=== PATIENT | female | born 1970 | race Asian ===

== ENCOUNTER 2017-10-15 15:18 | Inpatient (IN) | payer BC, OTHER ==
[~2017-10-15] VITALS: Ht 154.9 cm; Wt 70.0 kg
[2017-10-15 15:38] LABS: GLUCOSE,POINT OF CARE 125 MG/DL (70-110)
[2017-10-15] MEDS ORDERED: METF500T6 PO (15:44)
[2017-10-15] MEDS ORDERED: CITA-106 PO (15:44)
[2017-10-15] MEDS ORDERED: LORA0.5T2 PO (15:44)
[2017-10-15] MEDS ORDERED: TOPI100T37 PO (15:44)
[2017-10-15] MEDS ORDERED: GLIP5 PO (15:44)
[2017-10-15] MEDS ORDERED: HYDR-309 PO (15:44)
[2017-10-15] MEDS ORDERED: SIMV-261 PO (15:44)
[2017-10-15] MEDS ORDERED: ACETAMINOPHEN 500 MG TABLET PO ONE (15:45)
[2017-10-15] MEDS ORDERED: KETOROLAC TROMETHAMINE 30 MG/ML VIAL IVP ONE (16:15)
[2017-10-15] MEDS ORDERED: SODIUM CHLORIDE 0.9% 1,000 ML IV ONE ×2 (16:15→21:45)
[2017-10-15] MEDS ORDERED: IOVERSOL 320 MG/ML 100 ML VIAL ONE (16:22)
[2017-10-15 17:07] LABS: BASOPHILS % (AUTO) 0.6 % (0.0-2.0); EOSINOPHILS % (AUTO) 0.8 % (1.0-6.0); HEMATOCRIT 31.3 % (36-46); LYMPHOCYTES # (AUTO) 0.5 K/uL (1.0-4.8); LYMPHOCYTES % (AUTO) 16.7 % (22.0-44.0); MEAN CORPUSCULAR HEMOGLOBIN 20.8 pg (26.0-34.0); MEAN CORPUSCULAR HGB CONC 31.9 G/dL (31.0-37.0); MEAN CORPUSCULAR VOLUME 65 fL (80-100); MONOCYTES # (AUTO) 0.1 K/uL (0.1-1.0); MONOCYTES % (AUTO) 4.3 % (2.0-9.0); NEUTROPHILS # (AUTO) 2.3 K/uL (1.8-7.7); NEUTROPHILS % (AUTO) 77.6 % (40.0-70.0); PLATELET COUNT (AUTO) 322 K/uL (150-450); RED BLOOD CELL COUNT(AUTO) 4.81 MIL/uL (4.00-5.20); RED CELL DISTRIBUTION WIDTH 22.3 % (11.5-14.5)
[2017-10-15 17:30] LABS: ANION GAP 11 mmol/L (8-16); CALCIUM, TOTAL 9.3 mg/dL (8.8-10.5); CARBON DIOXIDE 22 mmol/L (22-29); CHLORIDE 105 mmol/L (98-107); CREATININE 0.87 mg/dL (0.60-1.30); GLOMERULAR FILTR. RATE CALC > 60 mL/min (>60); GLUCOSE,RANDOM 91 mg/dL (70-110); POTASSIUM 3.3 mmol/L (3.5-5.1); SODIUM SERUM 138 mmol/L (136-145); UREA NITROGEN, BLOOD 10 mg/dL (7-18)
[2017-10-15] MEDS ORDERED: LORazepam 2 MG/ML VIAL IVP ONE (17:30)
[2017-10-15 17:31] LABS: ALANINE AMINOTRANSFERASE 295 U/L (12-78); ALBUMIN 3.8 g/dL (3.4-5.0); ALKALINE PHOSPHATASE 380 U/L (46-116); ASPARTATE AMINOTRANSFERASE 227 U/L (15-37); BILIRUBIN,TOTAL 1.1 mg/dL (0.1-1.0); LIPASE 216 U/L (73-393); TOTAL PROTEIN, SERUM 8.2 g/dL (6.4-8.2)
[2017-10-15 18:04] LABS: LACTIC ACID 2.3 mmol/L (0.4-2.0)
[2017-10-15 18:37] LABS: APPEARANCE,URINE CLOUDY (CLEAR); GLUCOSE, URINE (UA) NEGATIVE (NEGATIVE); KETONES,URINE NEGATIVE (NEGATIVE); LEUKOCYTE ESTERASE ,URINE TRACE (NEGATIVE); NITRATE,URINE NEGATIVE (NEGATIVE); OCCULT BLOOD,URINE LARGE (NEGATIVE); PH,URINE 6.5 (5.0-8.0); PROTEIN,URINE POS 1+ (NEGATIVE)
[2017-10-15 19:04] LABS: BILIRUBIN,URINE PRELIM. POSITIVE (NEGATIVE)
[2017-10-15 19:06] LABS: SQUAMOUS EPITHELIAL CELL,UR Moderate /LPF (None Seen)
[2017-10-15 19:07] LABS: BACTERIA,URINE Few /HPF (None Seen)
[2017-10-15] MEDS ORDERED: LISI-622 PO (20:14)
[2017-10-15] MEDS ORDERED: DiphenhydrAMINE HCL 50 MG/ML VIAL IVP ONE (20:15)
[2017-10-15] MEDS ORDERED: ONDANSETRON HCL 4 MG/2 ML VIAL IVP PRN (20:15)
[2017-10-15] MEDS ORDERED: 0.9% SODIUM CHLORIDE 10 ML SYRINGE IVP PRN (20:15)
[2017-10-15] MEDS ORDERED: ACETAMINOPHEN 325 MG TABLET PO PRN (20:15)
[2017-10-15] MEDS ORDERED: METOCLOPRAMIDE HCL 5 MG/ML 2 ML VIAL IVP ONE (20:15)
[2017-10-15] MEDS ORDERED: MAGNESIUM HYDROXIDE SUSPENSION 30 ML UDCUP PO PRN (21:45)
[2017-10-15] MEDS ORDERED: BISACODYL 10 MG RECTAL RECTAL SUPPOSITORY PR PRN (21:45)
[2017-10-15] MEDS ORDERED: MORPHINE SULFATE 4 MG/ML SYRINGE IVP PRN (21:45)
[2017-10-15 22:26] VITALS: BP 102/61
[2017-10-15] MEDS ORDERED: CefTRIAXone SODIUM 1 GM in DEXTROSE 5%-WATER 10 ML IV ONE (22:30)
[2017-10-15] MEDS: HYDROCODONE/ACETAMINOPHEN 5-325 MG TABLET PO PRN (23:21)
[2017-10-15] MEDS: ZOLPIDEM TARTRATE 5 MG TABLET PO PRN (23:21)
[2017-10-16] MEDS: HEPARIN SODIUM,PORCINE 5,000 UNITS/ML VIAL SQ SCH ×4 (00:56→23:28)
[2017-10-16 02:55] VITALS: BP 114/70
[2017-10-16] MEDS: GlipiZIDE 5 MG TABLET PO SCH (06:00)
[2017-10-16 06:45] LABS: ALANINE AMINOTRANSFERASE 224 U/L (12-78); ALKALINE PHOSPHATASE 324 U/L (46-116); ANION GAP 9 mmol/L (8-16); ASPARTATE AMINOTRANSFERASE 154 U/L (15-37); BILIRUBIN,TOTAL 0.6 mg/dL (0.1-1.0); CALCIUM, TOTAL 8.1 mg/dL (8.8-10.5); CARBON DIOXIDE 22 mmol/L (22-29); CHLORIDE 110 mmol/L (98-107); CREATININE 0.81 mg/dL (0.60-1.30); GLOMERULAR FILTR. RATE CALC > 60 mL/min (>60); GLUCOSE,RANDOM 158 mg/dL (70-110); POTASSIUM 3.3 mmol/L (3.5-5.1); SODIUM SERUM 141 mmol/L (136-145); TOTAL PROTEIN, SERUM 6.7 g/dL (6.4-8.2); UREA NITROGEN, BLOOD 9 mg/dL (7-18)
[2017-10-16 07:26] LABS: BASOPHILS % (AUTO) 0.7 % (0.0-2.0); EOSINOPHILS % (AUTO) 2.2 % (1.0-6.0); HEMATOCRIT 25.7 % (36-46); HEMOGLOBIN 8.1 g/dL (12.0-16.0); LYMPHOCYTES # (AUTO) 0.6 K/uL (1.0-4.8); LYMPHOCYTES % (AUTO) 28.3 % (22.0-44.0); MEAN CORPUSCULAR HEMOGLOBIN 20.3 pg (26.0-34.0); MEAN CORPUSCULAR HGB CONC 31.6 G/dL (31.0-37.0); MEAN CORPUSCULAR VOLUME 64 fL (80-100); MONOCYTES # (AUTO) 0.2 K/uL (0.1-1.0); MONOCYTES % (AUTO) 8.1 % (2.0-9.0); NEUTROPHILS # (AUTO) 1.3 K/uL (1.8-7.7); NEUTROPHILS % (AUTO) 60.7 % (40.0-70.0); PLATELET COUNT (AUTO) 314 K/uL (150-450); RED BLOOD CELL COUNT(AUTO) 4.02 MIL/uL (4.00-5.20); RED CELL DISTRIBUTION WIDTH 22.4 % (11.5-14.5)
[2017-10-16 08:00] VITALS: BP 133/70
[2017-10-16] MEDS: MetFORMIN HCL 500 MG TABLET PO SCH ×2 (08:00→18:00)
[2017-10-16] MEDS: SIMVASTATIN 40 MG TABLET PO SCH (08:50)
[2017-10-16] MEDS: PANTOPRAZOLE SODIUM 40 MG DR TABLET PO SCH (08:50)
[2017-10-16] MEDS: DOCUSATE SODIUM 100 MG CAPSULE PO SCH ×2 (08:50→21:00)
[2017-10-16] MEDS: HYDROCODONE/ACETAMINOPHEN 5-325 MG TABLET PO PRN ×2 (08:51→21:05)
[2017-10-16] MEDS: DOXYCYCLINE HYCLATE 100 MG CAPSULE PO SCH ×2 (09:28→21:05)
[2017-10-16] MEDS ORDERED: POTASSIUM CHLORIDE 20 MEQ ER TABLET PO ONE (11:00)
[2017-10-16] MEDS ORDERED: LORazepam 0.5 MG TABLET PO PRN (11:00)
[2017-10-16 11:09] VITALS: BP 128/73
[2017-10-16] MEDS: LOSARTAN POTASSIUM 25 MG TABLET PO SCH (11:34)
[2017-10-16] MEDS: CITALOPRAM HYDROBROMIDE 20 MG TABLET PO SCH (11:34)
[2017-10-16 19:40] VITALS: BP 136/75
[2017-10-16] MEDS ORDERED: LISINOPRIL 5 MG TABLET PO SCH (21:00)
[2017-10-16] MEDS: TOPIRAMATE 100 MG TABLET PO SCH (21:05)
[2017-10-16] MEDS: HYDROmorphone HCL 2 MG TABLET PO PRN (23:20)
[2017-10-16 23:22] VITALS: BP 131/70
[2017-10-17 03:49] VITALS: BP 112/55
[2017-10-17] MEDS: HYDROmorphone HCL 2 MG TABLET PO PRN ×2 (05:25→20:37)
[2017-10-17] MEDS: GlipiZIDE 5 MG TABLET PO SCH (08:17)
[2017-10-17] MEDS: HEPARIN SODIUM,PORCINE 5,000 UNITS/ML VIAL SQ SCH ×3 (08:18→23:56)
[2017-10-17] MEDS: SIMVASTATIN 40 MG TABLET PO SCH (08:18)
[2017-10-17] MEDS: CITALOPRAM HYDROBROMIDE 20 MG TABLET PO SCH (08:18)
[2017-10-17] MEDS: LOSARTAN POTASSIUM 25 MG TABLET PO SCH (08:18)
[2017-10-17] MEDS: MetFORMIN HCL 500 MG TABLET PO SCH ×2 (08:18→17:43)
[2017-10-17] MEDS: PANTOPRAZOLE SODIUM 40 MG DR TABLET PO SCH (08:19)
[2017-10-17 08:52] VITALS: BP 128/70
[2017-10-17] MEDS: DOCUSATE SODIUM 100 MG CAPSULE PO SCH ×2 (09:00→20:40)
[2017-10-17 09:32] LABS: BASOPHILS % (AUTO) 0.9 % (0.0-2.0); EOSINOPHILS % (AUTO) 4.2 % (1.0-6.0); HEMATOCRIT 23.3 % (36-46); HEMOGLOBIN 7.7 g/dL (12.0-16.0); LYMPHOCYTES % (AUTO) 42.1 % (22.0-44.0); MEAN CORPUSCULAR HEMOGLOBIN 21.1 pg (26.0-34.0); MEAN CORPUSCULAR VOLUME 64 fL (80-100); MONOCYTES # (AUTO) 0.3 K/uL (0.1-1.0); NEUTROPHILS % (AUTO) 41.8 % (40.0-70.0); PLATELET COUNT (AUTO) 333 K/uL (150-450); RED BLOOD CELL COUNT(AUTO) 3.65 MIL/uL (4.00-5.20); RED CELL DISTRIBUTION WIDTH 22.3 % (11.5-14.5)
[2017-10-17 09:49] LABS: ALANINE AMINOTRANSFERASE 219 U/L (12-78); ALBUMIN 3.1 g/dL (3.4-5.0); ALKALINE PHOSPHATASE 415 U/L (46-116); ANION GAP 9 mmol/L (8-16); ASPARTATE AMINOTRANSFERASE 146 U/L (15-37); BILIRUBIN,TOTAL 0.7 mg/dL (0.1-1.0); C-REACTIVE PROTEIN QUANT 2.39 mg/dL (0.00-0.30); CALCIUM, TOTAL 8.2 mg/dL (8.8-10.5); CARBON DIOXIDE 24 mmol/L (22-29); CHLORIDE 108 mmol/L (98-107); CREATINE KINASE, TOTAL 37 U/L (26-192); CREATININE 0.71 mg/dL (0.60-1.30); GLOMERULAR FILTR. RATE CALC > 60 mL/min (>60); GLUCOSE,RANDOM 193 mg/dL (70-110); POTASSIUM 3.7 mmol/L (3.5-5.1); SODIUM SERUM 141 mmol/L (136-145); TOTAL PROTEIN, SERUM 6.7 g/dL (6.4-8.2); UREA NITROGEN, BLOOD 6 mg/dL (7-18)
[2017-10-17 10:02] LABS: LACTATE DEHYDROGENASE 276 U/L (81-234)
[2017-10-17 10:39] LABS: ERYTHROCYTE SEDIMENTATION RATE 15 MM/HR (0-20)
[2017-10-17] MEDS ORDERED: SUMAtriptan SUCCINATE 6 MG/0.5 ML VIAL SQ PRN (11:15)
[2017-10-17 11:30] VITALS: BP 126/72
[2017-10-17 11:33] LABS: HIV 1-2 SCREEN 4TH GEN W/RFLX Non Reactive (Non Reactive)
[2017-10-17 12:41] LABS: MONOTEST NEGATIVE (NEGATIVE)
[2017-10-17 15:28] VITALS: BP 119/72
[2017-10-17 15:46] LABS: % IRON SATURATION 4.5 % (22-44)
[2017-10-17] MEDS ORDERED: SODIUM CHLORIDE 0.9% 250 ML IV ONE (16:16)
[2017-10-17] MEDS: SOD FERRIC GLUC COMPLX/SUCROSE 125 MG in SODIUM CHLORIDE 0.9% 100 ML IV SCH (16:23)
[2017-10-17] MEDS: ACETAMINOPHEN 325 MG TABLET PO PRN (17:40)
[2017-10-17] MEDS: TOPIRAMATE 100 MG TABLET PO SCH (20:36)
[2017-10-17 20:38] VITALS: BP 126/75
[2017-10-17] MEDS: ZOLPIDEM TARTRATE 5 MG TABLET PO PRN (23:56)
[2017-10-18] VITALS: BP 122/67
[2017-10-18 03:12] VITALS: BP 115/74
[2017-10-18] MEDS: HYDROmorphone HCL 2 MG TABLET PO PRN ×4 (03:12→21:13)
[2017-10-18] MEDS: GlipiZIDE 5 MG TABLET PO SCH (05:52)
[2017-10-18] MEDS: ACETAMINOPHEN 325 MG TABLET PO PRN (06:25)
[2017-10-18 06:43] LABS: BASOPHILS % (AUTO) 0.8 % (0.0-2.0); EOSINOPHILS % (AUTO) 3.3 % (1.0-6.0); HEMATOCRIT 25.1 % (36-46); HEMOGLOBIN 8.2 g/dL (12.0-16.0); LYMPHOCYTES # (AUTO) 1.3 K/uL (1.0-4.8); LYMPHOCYTES % (AUTO) 37.9 % (22.0-44.0); MEAN CORPUSCULAR HGB CONC 32.5 G/dL (31.0-37.0); MEAN CORPUSCULAR VOLUME 65 fL (80-100); MONOCYTES # (AUTO) 0.3 K/uL (0.1-1.0); MONOCYTES % (AUTO) 10.1 % (2.0-9.0); NEUTROPHILS # (AUTO) 1.6 K/uL (1.8-7.7); NEUTROPHILS % (AUTO) 47.9 % (40.0-70.0); PLATELET COUNT (AUTO) 374 K/uL (150-450); RED BLOOD CELL COUNT(AUTO) 3.89 MIL/uL (4.00-5.20); RED CELL DISTRIBUTION WIDTH 22.7 % (11.5-14.5)
[2017-10-18 07:12] VITALS: BP 105/58
[2017-10-18 07:15] LABS: ALANINE AMINOTRANSFERASE 244 U/L (12-78); ALBUMIN 3.2 g/dL (3.4-5.0); ALKALINE PHOSPHATASE 500 U/L (46-116); ANION GAP 10 mmol/L (8-16); ASPARTATE AMINOTRANSFERASE 172 U/L (15-37); BILIRUBIN,TOTAL 0.6 mg/dL (0.1-1.0); CALCIUM, TOTAL 8.4 mg/dL (8.8-10.5); CARBON DIOXIDE 25 mmol/L (22-29); CHLORIDE 105 mmol/L (98-107); CREATININE 0.72 mg/dL (0.60-1.30); GLOMERULAR FILTR. RATE CALC > 60 mL/min (>60); GLUCOSE,RANDOM 206 mg/dL (70-110); POTASSIUM 3.4 mmol/L (3.5-5.1); SODIUM SERUM 140 mmol/L (136-145); TOTAL PROTEIN, SERUM 7.2 g/dL (6.4-8.2); UREA NITROGEN, BLOOD 6 mg/dL (7-18)
[2017-10-18] MEDS: MetFORMIN HCL 500 MG TABLET PO SCH ×2 (08:05→17:01)
[2017-10-18] MEDS: PANTOPRAZOLE SODIUM 40 MG DR TABLET PO SCH (08:06)
[2017-10-18] MEDS: DOCUSATE SODIUM 100 MG CAPSULE PO SCH ×2 (08:06→20:29)
[2017-10-18] MEDS: LOSARTAN POTASSIUM 25 MG TABLET PO SCH (08:06)
[2017-10-18] MEDS: SIMVASTATIN 40 MG TABLET PO SCH (08:06)
[2017-10-18] MEDS: HEPARIN SODIUM,PORCINE 5,000 UNITS/ML VIAL SQ SCH ×2 (08:06→17:01)
[2017-10-18] MEDS: CITALOPRAM HYDROBROMIDE 20 MG TABLET PO SCH (08:06)
[2017-10-18 11:12] VITALS: BP 140/68
[2017-10-18] MEDS: SOD FERRIC GLUC COMPLX/SUCROSE 125 MG in SODIUM CHLORIDE 0.9% 100 ML IV SCH (14:06)
[2017-10-18 15:39] VITALS: BP 128/77
[2017-10-18 20:02] VITALS: BP 125/71
[2017-10-18] MEDS: TOPIRAMATE 100 MG TABLET PO SCH (20:29)
[2017-10-18] MEDS: ZOLPIDEM TARTRATE 5 MG TABLET PO PRN (22:32)
[2017-10-18 22:53] LABS: GLUCOMETER DEV NAME(LOC) 5N 1P; GLUCOSE,POINT OF CARE 108 MG/DL (70-110)
[2017-10-19 00:28] VITALS: BP 126/68
[2017-10-19] MEDS: HEPARIN SODIUM,PORCINE 5,000 UNITS/ML VIAL SQ SCH ×4 (00:28→23:13)
[2017-10-19 05:48] VITALS: BP 122/67
[2017-10-19] MEDS: GlipiZIDE 5 MG TABLET PO SCH (06:07)
[2017-10-19] MEDS: HYDROmorphone HCL 2 MG TABLET PO PRN ×4 (06:32→23:13)
[2017-10-19 07:15] VITALS: BP 112/68
[2017-10-19] MEDS: CITALOPRAM HYDROBROMIDE 20 MG TABLET PO SCH (08:21)
[2017-10-19] MEDS: SIMVASTATIN 40 MG TABLET PO SCH (08:21)
[2017-10-19] MEDS: MetFORMIN HCL 500 MG TABLET PO SCH ×2 (08:21→17:55)
[2017-10-19] MEDS: PANTOPRAZOLE SODIUM 40 MG DR TABLET PO SCH (08:21)
[2017-10-19] MEDS: LOSARTAN POTASSIUM 25 MG TABLET PO SCH (08:21)
[2017-10-19] MEDS: DOCUSATE SODIUM 100 MG CAPSULE PO SCH ×2 (08:23→20:07)
[2017-10-19 10:50] VITALS: BP 101/63
[2017-10-19] MEDS ORDERED: POTASSIUM CHLORIDE 20 MEQ ER TABLET PO PRN (11:00)
[2017-10-19] MEDS ORDERED: POTASSIUM CHL 10 MEQ/WATER 50 ML IV PRN (11:00)
[2017-10-19 14:56] VITALS: BP 108/58
[2017-10-19] MEDS: SOD FERRIC GLUC COMPLX/SUCROSE 125 MG in SODIUM CHLORIDE 0.9% 100 ML IV SCH (15:37)
[2017-10-19 19:33] VITALS: BP 131/73
[2017-10-19] MEDS: TOPIRAMATE 100 MG TABLET PO SCH (20:07)
[2017-10-19] MEDS: ZOLPIDEM TARTRATE 5 MG TABLET PO PRN (22:25)
[2017-10-20] VITALS (8 sets, daily range): BP systolic 104–130; BP diastolic 63–78
[2017-10-20] MEDS: GlipiZIDE 5 MG TABLET PO SCH (05:48)
[2017-10-20 06:32] LABS: BASOPHILS % (AUTO) 0.7 % (0.0-2.0); EOSINOPHILS % (AUTO) 2.8 % (1.0-6.0); HEMATOCRIT 28.1 % (36-46); HEMOGLOBIN 9.3 g/dL (12.0-16.0); LYMPHOCYTES # (AUTO) 1.7 K/uL (1.0-4.8); LYMPHOCYTES % (AUTO) 21.4 % (22.0-44.0); MEAN CORPUSCULAR HEMOGLOBIN 21.5 pg (26.0-34.0); MEAN CORPUSCULAR VOLUME 65 fL (80-100); MONOCYTES # (AUTO) 0.5 K/uL (0.1-1.0); MONOCYTES % (AUTO) 6.8 % (2.0-9.0); NEUTROPHILS # (AUTO) 5.4 K/uL (1.8-7.7); NEUTROPHILS % (AUTO) 68.3 % (40.0-70.0); PLATELET COUNT (AUTO) 490 K/uL (150-450); RED BLOOD CELL COUNT(AUTO) 4.31 MIL/uL (4.00-5.20); RED CELL DISTRIBUTION WIDTH 22.6 % (11.5-14.5)
[2017-10-20 06:59] LABS: ALANINE AMINOTRANSFERASE 198 U/L (12-78); ALBUMIN 3.6 g/dL (3.4-5.0); ALKALINE PHOSPHATASE 467 U/L (46-116); ANION GAP 9 mmol/L (8-16); ASPARTATE AMINOTRANSFERASE 85 U/L (15-37); BILIRUBIN,TOTAL 0.5 mg/dL (0.1-1.0); CALCIUM, TOTAL 8.9 mg/dL (8.8-10.5); CARBON DIOXIDE 27 mmol/L (22-29); CHLORIDE 105 mmol/L (98-107); GLOMERULAR FILTR. RATE CALC > 60 mL/min (>60); GLUCOSE,RANDOM 200 mg/dL (70-110); POTASSIUM 3.8 mmol/L (3.5-5.1); SODIUM SERUM 141 mmol/L (136-145); TOTAL PROTEIN, SERUM 7.7 g/dL (6.4-8.2); UREA NITROGEN, BLOOD 5 mg/dL (7-18)
[2017-10-20] MEDS: HYDROmorphone HCL 2 MG TABLET PO PRN ×3 (07:00→21:07)
[2017-10-20] MEDS: HEPARIN SODIUM,PORCINE 5,000 UNITS/ML VIAL SQ SCH ×3 (08:00→23:15)
[2017-10-20] MEDS: PANTOPRAZOLE SODIUM 40 MG DR TABLET PO SCH (08:11)
[2017-10-20] MEDS: CITALOPRAM HYDROBROMIDE 20 MG TABLET PO SCH (08:11)
[2017-10-20] MEDS: LOSARTAN POTASSIUM 25 MG TABLET PO SCH (08:11)
[2017-10-20] MEDS: MetFORMIN HCL 500 MG TABLET PO SCH ×2 (08:11→18:10)
[2017-10-20] MEDS: DOCUSATE SODIUM 100 MG CAPSULE PO SCH ×3 (08:12→21:07)
[2017-10-20] MEDS: SIMVASTATIN 40 MG TABLET PO SCH (08:14)
[2017-10-20 08:27] LABS: PLATELET MORPHOLOGY COMMENT GIANT PLTS PRESENT
[2017-10-20] MEDS: ONDANSETRON HCL 4 MG/2 ML VIAL IVP PRN ×2 (10:11→23:01)
[2017-10-20] MEDS ORDERED: SODIUM CHLORIDE 0.9% 100 ML ONE (14:23)
[2017-10-20] MEDS: SOD FERRIC GLUC COMPLX/SUCROSE 125 MG in SODIUM CHLORIDE 0.9% 100 ML IV SCH (14:26)
[2017-10-20] MEDS: TOPIRAMATE 100 MG TABLET PO SCH (21:07)
[2017-10-20] MEDS: ZOLPIDEM TARTRATE 5 MG TABLET PO PRN (23:15)
[2017-10-21 04:58] VITALS: BP 105/71
[2017-10-21] MEDS: GlipiZIDE 5 MG TABLET PO SCH (06:09)
[2017-10-21 07:45] VITALS: BP 106/74
[2017-10-21] MEDS: MetFORMIN HCL 500 MG TABLET PO SCH (08:13)
[2017-10-21] MEDS: PANTOPRAZOLE SODIUM 40 MG DR TABLET PO SCH (08:13)
[2017-10-21] MEDS: SIMVASTATIN 40 MG TABLET PO SCH (08:13)
[2017-10-21] MEDS: DOCUSATE SODIUM 100 MG CAPSULE PO SCH (08:13)
[2017-10-21] MEDS: CITALOPRAM HYDROBROMIDE 20 MG TABLET PO SCH (08:14)
[2017-10-21] MEDS: HEPARIN SODIUM,PORCINE 5,000 UNITS/ML VIAL SQ SCH ×2 (08:14→16:00)
[2017-10-21] MEDS: LOSARTAN POTASSIUM 25 MG TABLET PO SCH (09:00)
[2017-10-21] MEDS: ONDANSETRON HCL 4 MG/2 ML VIAL IVP PRN ×2 (09:44→14:42)
[2017-10-21] MEDS: HYDROmorphone HCL 2 MG TABLET PO PRN ×2 (09:50→16:26)
[2017-10-21 11:36] VITALS: BP 110/72
[2017-10-21 12:17] LABS: BASOPHILS % (AUTO) 0.6 % (0.0-2.0); EOSINOPHILS % (AUTO) 2.1 % (1.0-6.0); HEMATOCRIT 29.3 % (36-46); HEMOGLOBIN 9.4 g/dL (12.0-16.0); LYMPHOCYTES # (AUTO) 1.5 K/uL (1.0-4.8); LYMPHOCYTES % (AUTO) 19.3 % (22.0-44.0); MEAN CORPUSCULAR HEMOGLOBIN 21.4 pg (26.0-34.0); MEAN CORPUSCULAR HGB CONC 32.2 G/dL (31.0-37.0); MEAN CORPUSCULAR VOLUME 67 fL (80-100); MONOCYTES # (AUTO) 0.5 K/uL (0.1-1.0); MONOCYTES % (AUTO) 6.9 % (2.0-9.0); NEUTROPHILS # (AUTO) 5.4 K/uL (1.8-7.7); NEUTROPHILS % (AUTO) 71.1 % (40.0-70.0); PLATELET COUNT (AUTO) 509 K/uL (150-450); RED CELL DISTRIBUTION WIDTH 22.1 % (11.5-14.5)
[2017-10-21 12:42] LABS: PLATELET MORPHOLOGY COMMENT GIANT PLTS PRESENT
[2017-10-21 12:55] LABS: ANION GAP 7 mmol/L (8-16); CALCIUM, TOTAL 8.7 mg/dL (8.8-10.5); CARBON DIOXIDE 28 mmol/L (22-29); CHLORIDE 104 mmol/L (98-107); CREATININE 0.81 mg/dL (0.60-1.30); GLOMERULAR FILTR. RATE CALC > 60 mL/min (>60); GLUCOSE,RANDOM 224 mg/dL (70-110); SODIUM SERUM 139 mmol/L (136-145); UREA NITROGEN, BLOOD 8 mg/dL (7-18)
[2017-10-21] MEDS: SOD FERRIC GLUC COMPLX/SUCROSE 125 MG in SODIUM CHLORIDE 0.9% 100 ML IV SCH (14:45)
[2017-10-21 15:25] VITALS: BP 115/70
[2017-10-21] MEDS ORDERED: LOSA25TA21 PO (16:09)
[2017-10-21] MEDS ORDERED: HYDR2TAB5 PO (16:10)
== END 2017-10-21 17:30 | disposition home or self-care (01) | DRG 872 ==
LOC: EMS 15:20 → 5N 20:22
PROVIDERS: ADMIT Internal Medicine; ATTEND Internal Medicine
DX: A41.9 Sepsis, unspecified organism (principal); N39.0 Urinary tract infection, site not specified; I10 Essential (primary) hypertension; E87.6 Hypokalemia; E11.9 Type 2 diabetes mellitus without complications; E78.5 Hyperlipidemia, unspecified; R74.0 Nonspecific elevation of levels of transaminase and lactic acid dehydrogenase [LDH]; M79.7 Fibromyalgia; M79.0 Rheumatism, unspecified; F41.9 Anxiety disorder, unspecified; F32.9 Major depressive disorder, single episode, unspecified; G43.909 Migraine, unspecified, not intractable, without status migrainosus; E89.0 Postprocedural hypothyroidism; Z80.9 Family history of malignant neoplasm, unspecified; Z83.3 Family history of diabetes mellitus; Z91.040 Latex allergy status; Z82.49 Family history of ischemic heart disease and other diseases of the circulatory system; Z82.61 Family history of arthritis
CPT/HCPCS: 74177; 76705; 80074; 82270; 82271; 83010; 83540; 83550; 83605; 83615; 84132; 84145; 85651; 86038; 86140; 86171; 86308; 86430; 86713; 86747; 86880; 87040; 87389; 96361; 96365; 96375; 99285; J0696; J1200; J1644; J1885; J2060; J2270; J2405; J2765; J2916; J3030; J7030; J7050; J7060